=== PATIENT | female | born 1945 ===

== ENCOUNTER 2017-11-27 05:25 | Day surgery (SDC) | payer OTHER ==
[~2017-11-27 05:25] MED LIST: ADULT ASPIRIN81 MG PO; AMLODIPINE BES2.5 MG PO; ATORVASTATIN CA10 MG PO; CALCIUM600 MG PO; FLECAINIDE ACET50 MG PO; FLEXERIL; LOSARTAN POTAS100 MG PO; METOPROLOL SUCC50 MG PO; NEURONTIN300 MG PO; PROBIOTIC1 EAC3 PO
[2017-11-27] MEDS ORDERED: PYRIDIUM100 M1 PO (08:49)
[2017-11-27] MEDS ORDERED: KEFLEX500 MG PO (08:49)
== END 2017-11-27 13:00 | disposition home or self-care (01) ==
LOC: CIR.AMB 05:25
DX: N30.80 Other cystitis without hematuria (principal)